=== PATIENT | male | born 1995 | race Caucasian/White ===

== ENCOUNTER 2020-07-29 13:34 | Emergency (ER) | payer MEDICAID ==
[~2020-07-29] VITALS: Ht 180.3 cm; Wt 59.6 kg
[2020-07-29 13:43] VITALS: BP 130/88
--- NOTE | 2020-07-29 14:15 | NUR ---
pt to ct
== END 2020-07-29 15:27 | disposition home or self-care (01) ==
LOC: ED 15:16
DX: S06.0X0A Concussion without loss of consciousness, initial encounter (principal); S00.33XA Contusion of nose, initial encounter; Y04.8XXA Assault by other bodily force, initial encounter; Y93.89 Activity, other specified; Y92.009 Unspecified place in unspecified non-institutional (private) residence as the place of occurrence of the external cause; Y99.8 Other external cause status
CPT/HCPCS: 70450; 70486; 72125; 99285